=== PATIENT | male | born 1950 | race Caucasian/White ===

== ENCOUNTER 2016-07-22 16:10 | Emergency (ER) | payer OTHER ==
--- NOTE | 2016-07-22 16:18 | ER Document Report ---
ED Medical Screen (RME) - General Stated Complaint: POSSIBLE RIGHT HAND LACERATION Notes: 65 yo male presents with laceration to right hand. grabbed kitchen knife while doing dishes. Tetnus status unknown. 3cm linear laceration to palmar right hand. bleeding controlled. - Related Data Allergies/Adverse Reactions: No Known Allergies Allergy (Verified 07/22/16 16:16) Past Medical History - Past Medical History Cardiac Medical History: Reports: Hx Atrial Fibrillation, Hx Hypercholesterolemia, Hx Hypertension Denies: Hx Congestive Heart Failure, Hx Coronary Artery Disease, Hx Heart Attack, Hx Peripheral Vascular Disease, Hx Pulmonary Embolism, Hx Heart Murmur Pulmonary Medical History: Reports: Hx Sleep Apnea Denies: Hx Asthma, Hx Bronchitis, Hx COPD, Hx Pneumonia, Hx Respiratory Failure, Hx Tuberculosis Neurological Medical History: Denies: Hx Cerebrovascular Accident, Hx Seizures Endocrine Medical History: Denies: Hx Graves' Disease, Hx Hyperthyroidism, Hx Hypothyroidism Renal/ Medical History: Denies: Hx Benign Prostatic Hyperplasia, Hx End Stage Renal Disease, Hx Kidney Stones, Hx Peritoneal Dialysis Malignancy Medical History: Denies Hx Leukemia, Denies Hx Lung Cancer GI Medical History: Denies: Hx Crohn's Disease, Hx Gastroesophageal Reflux Disease, Hx Hiatal Hernia, Hx Irritable Bowel, Hx Liver Failure, Hx Ulcer Musculoskeltal Medical History: Reports Hx Arthritis - in foot and left knee., Denies Hx Fibromyalgia, Denies Hx Multiple Sclerosis, Denies Hx Muscular Dystrophy Psychiatric Medical History: Reports: Hx Depression Denies: Hx Bipolar Disorder, Hx Dementia, Hx Post Traumatic Stress Disorder, Hx Schizophrenia Traumatic Medical History: Denies: Hx Fractures Infectious Medical History: Denies: Hx HIV Past Surgical History: Reports: Hx Orthopedic Surgery - left foot. Denies: Hx Appendectomy, Hx Bowel Surgery, Hx Cholecystectomy, Hx Colostomy, Hx Coronary Artery Bypass Graft, Hx Gastric Bypass Surgery, Hx Herniorrhaphy, Hx Pacemaker, Hx Tonsillectomy - Immunizations Immunizations up to date: Yes Hx Diphtheria, Pertussis, Tetanus Vaccination: Yes
[2016-07-22] MEDS ORDERED: LIDOCAINE 1% INJ-PF (10 MG/ML) 30 ML SDV INJ ONE (21:21)
[2016-07-22] MEDS ORDERED: DIPH/PERTUSS(ACELL)/TETANUS VAC/PF 0.5 ML SYR (>=10YO) IM ONE (21:21)
--- NOTE | 2016-07-22 21:22 | ER Document Report ---
ED Wound - General Chief Complaint: Laceration Stated Complaint: POSSIBLE RIGHT HAND LACERATION Mode of Arrival: Ambulatory Information source: Patient Notes: Patient is a 65-year-old male on Coumadin who presents to the ER today for a cut to his right hand while washing dishes accidentally on a ceramic knife. He does not know when his last tetanus was. He states bleeding is controlled. He denies any numbness, tingling. TRAVEL OUTSIDE OF THE [place] IN LAST 30 DAYS: No - Related Data Allergies/Adverse Reactions: No Known Allergies Allergy (Verified 07/22/16 16:16) Past Medical History - General Information source: Patient - Social History Smoking Status: Never Smoker Chew tobacco use (# tins/day): No Frequency of alcohol use: None Drug Abuse: None Family History: CAD - Mother had bypass surgery at age 75 and lived to be 85, Hypertension Patient has suicidal ideation: No Patient has homicidal ideation: No - Past Medical History Cardiac Medical History: Reports: Hx Atrial Fibrillation, Hx Hypercholesterolemia, Hx Hypertension Denies: Hx Congestive Heart Failure, Hx Coronary Artery Disease, Hx Heart Attack, Hx Peripheral Vascular Disease, Hx Pulmonary Embolism, Hx Heart Murmur Pulmonary Medical History: Reports: Hx Sleep Apnea Denies: Hx Asthma, Hx Bronchitis, Hx COPD, Hx Pneumonia, Hx Respiratory Failure, Hx Tuberculosis Neurological Medical History: Denies: Hx Cerebrovascular Accident, Hx Seizures Endocrine Medical History: Denies: Hx Graves' Disease, Hx Hyperthyroidism, Hx Hypothyroidism Renal/ Medical History: Denies: Hx Benign Prostatic Hyperplasia, Hx End Stage Renal Disease, Hx Kidney Stones, Hx Peritoneal Dialysis Malignancy Medical History: Denies Hx Leukemia, Denies Hx Lung Cancer GI Medical History: Denies: Hx Crohn's Disease, Hx Gastroesophageal Reflux Disease, Hx Hiatal Hernia, Hx Irritable Bowel, Hx Liver Failure, Hx Ulcer Musculoskeltal Medical History: Reports Hx Arthritis - in foot and left knee., Denies Hx Fibromyalgia, Denies Hx Multiple Sclerosis, Denies Hx Muscular Dystrophy Psychiatric Medical History: Reports: Hx Depression Denies: Hx Bipolar Disorder, Hx Dementia, Hx Post Traumatic Stress Disorder, Hx Schizophrenia Traumatic Medical History: Denies: Hx Fractures Infectious Medical History: Denies: Hx HIV Past Surgical History: Reports: Hx Orthopedic Surgery - left foot. Denies: Hx Appendectomy, Hx Bowel Surgery, Hx Cholecystectomy, Hx Colostomy, Hx Coronary Artery Bypass Graft, Hx Gastric Bypass Surgery, Hx Herniorrhaphy, Hx Pacemaker, Hx Tonsillectomy - Immunizations Immunizations up to date: Yes Hx Diphtheria, Pertussis, Tetanus Vaccination: Yes Hx Pneumococcal Vaccination: 08/29/11 Review of Systems - Review of Systems Constitutional: No symptoms reported EENT: No symptoms reported Cardiovascular: No symptoms reported Respiratory: No symptoms reported Gastrointestinal: No symptoms reported Genitourinary: No symptoms reported Male Genitourinary: No symptoms reported Musculoskeletal: No symptoms reported Skin: See HPI Hematologic/Lymphatic: No symptoms reported Neurological/Psychological: No symptoms reported Physical Exam - Notes Notes: PHYSICAL EXAMINATION: GENERAL: Well-appearing and in no acute distress. HEAD: Atraumatic, normocephalic. EYES: Pupils equal round and reactive to light, extraocular movements intact, sclera anicteric, conjunctiva are normal. NECK: Normal range of motion, supple without lymphadenopathy LUNGS: CTAB and equal. No wheezes rales or rhonchi. HEART: Regular rate and rhythm without murmurs EXTREMITIES: Normal range of motion, no pitting edema. No cyanosis. NEUROLOGICAL: Cranial nerves grossly intact. Normal sensory/motor exams. PSYCH: Normal mood, normal affect. SKIN: Warm, Dry, normal turgor, 4cm laceration to volar surface of right hand, minimal bleeding, superficial Course - Re-evaluation Re-evalutation: 07/22/16 23:21 Sutures were placed and hemostasis was achieved. Patient tolerated procedure well. Discharge - Discharge Clinical Impression: Need for tetanus booster Laceration of hand Qualifiers: Encounter type: initial encounter Laterality: right Qualified Code(s): S61.411A - Laceration without foreign body of right hand, initial encounter Condition: Stable Disposition: HOME, SELF-CARE Instructions: Laceration Care ([facility]), Tetanus Immunization Given ([facility]), Prophylactic Antibiotic ([facility]), Soap Cleansing ([facility]) Additional Instructions: Please be seen in 7 days to have sutures removed. Return immediately for any new or worsening symptoms. Follow up with primary care provider, call tomorrow to make followup appointment. Prescriptions: Cephalexin Monohydrate [Keflex 250 mg Capsule] 250 mg PO BID #10 capsule
[2016-07-23 00:14] VITALS: BP 132/59
== END 2016-07-22 23:45 | disposition home or self-care (01) ==
LOC: ER 16:10
PROC: 0HQFXZZ Repair Right Hand Skin, External Approach (ICD-10-PCS; principal; 2016-07-22)
DX: S61.411A Laceration without foreign body of right hand, initial encounter (principal); W26.0XXA Contact with knife, initial encounter; Y93.G1 Activity, food preparation and clean up; Z23 Encounter for immunization; I10 Essential (primary) hypertension
CPT/HCPCS: 12002; 99282; 90471; 90715; J3490

== ENCOUNTER 2019-05-31 10:32 | Day surgery (SDC) | payer OTHER ==
[~2019-05-31 10:32] MED LIST: CHONDR SU A NA/HYALUR INTRAOC KIT (SURGICARE) ONE; EPINEPHRINE INJ/PF 1 MG/1 ML AMPULE ONE; KETOROLAC TROMETHAMINE 0.45% 4 DROP/0.4 ML DROPERETTE OD PRN; LIDOCAINE 1% INJ-PF (10 MG/ML) 30 ML SDV ONE
[2019-05-31] MEDS: CYCLOPENTOLATE 0.2%/PHENYLEPHRINE 1% OPH SOLN 2 ML OD PRN ×3 (10:50→11:10)
[2019-05-31] MEDS: BESIFLOXACIN HCL 0.6% OPH SUSP 5 ML BOTTLE OD PRN ×4 (10:50→11:44)
[2019-05-31] MEDS: TROPICAMIDE 1% OPH SOLN 15 ML OD PRN ×3 (10:50→11:10)
[2019-05-31] MEDS: TETRACAINE HCL 0.5% OPH SOLN 4 ML OD PRN ×3 (10:50→11:26)
[2019-05-31] MEDS ORDERED: FENTANYL CITRATE INJ/PF 100 MCG/2 ML AMPUL ONE (11:13)
[2019-05-31] MEDS ORDERED: MIDAZOLAM 2 MG/2 ML INJ ONE (11:13)
[2019-05-31] MEDS: TOBRAMYCIN SULFATE/DEXAMETH OPH OINTMENT 3.5 GM ONE ×2 (11:44)
[2019-05-31] MEDS: DORZOLAMIDE HCL 2%/TIMOLOL MALEAT 0.5% OPH SOLN 10 ML OD PRN ×2 (11:44)
== END 2019-05-31 12:32 | disposition home or self-care (01) ==
LOC: SC 10:32
PROVIDERS: ATTEND Ophthalmology
DX: H25.11 Age-related nuclear cataract, right eye (principal); J44.9 Chronic obstructive pulmonary disease, unspecified; E78.00 Pure hypercholesterolemia, unspecified; I10 Essential (primary) hypertension; I48.91 Unspecified atrial fibrillation; M10.9 Gout, unspecified; I20.9 Angina pectoris, unspecified; D64.9 Anemia, unspecified; Z79.51 Long term (current) use of inhaled steroids; Z79.899 Other long term (current) drug therapy; Z79.01 Long term (current) use of anticoagulants; Z87.891 Personal history of nicotine dependence
CPT/HCPCS: 00142; 66984; V2632; J2250; J3490 ×4; J0171; J3010; 142

== ENCOUNTER 2019-06-14 06:45 | Day surgery (SDC) | payer OTHER ==
[~2019-06-14 06:45] MED LIST changes: -CHONDR SU A NA/HYALUR INTRAOC KIT (SURGICARE) ONE; -EPINEPHRINE INJ/PF 1 MG/1 ML AMPULE ONE; -KETOROLAC TROMETHAMINE 0.45% 4 DROP/0.4 ML DROPERETTE OD PRN; +KETOROLAC TROMETHAMINE 0.45% 4 DROP/0.4 ML DROPERETTE OS PRN; -LIDOCAINE 1% INJ-PF (10 MG/ML) 30 ML SDV ONE
[2019-06-14] MEDS ORDERED: MIDAZOLAM 2 MG/2 ML INJ ONE (06:56)
[2019-06-14] MEDS ORDERED: FENTANYL CITRATE INJ/PF 100 MCG/2 ML AMPUL ONE (06:56)
[2019-06-14] MEDS: TETRACAINE HCL 0.5% OPH SOLN 4 ML OS PRN ×4 (06:57→07:47)
[2019-06-14] MEDS: BESIFLOXACIN HCL 0.6% OPH SUSP 5 ML BOTTLE OS PRN ×4 (06:58→08:08)
[2019-06-14] MEDS: TROPICAMIDE 1% OPH SOLN 15 ML OS PRN ×3 (06:58→07:25)
[2019-06-14] MEDS: CYCLOPENTOLATE 0.2%/PHENYLEPHRINE 1% OPH SOLN 2 ML OS PRN ×3 (06:58→07:25)
[2019-06-14] MEDS: CHONDR SU A NA/HYALUR INTRAOC KIT (SURGICARE) ONE ×2 (07:57)
[2019-06-14] MEDS: EPINEPHRINE INJ/PF 1 MG/1 ML AMPULE ONE ×2 (07:57)
[2019-06-14] MEDS: LIDOCAINE 1%/PHENYLEPHRINE 1.5% 1 ML VIAL ONE ×2 (07:57)
[2019-06-14] MEDS: DORZOLAMIDE HCL 2%/TIMOLOL MALEAT 0.5% OPH SOLN 10 ML OS PRN ×2 (08:08)
== END 2019-06-14 08:41 | disposition home or self-care (01) ==
LOC: SC 06:45
PROVIDERS: ATTEND Ophthalmology
DX: H25.12 Age-related nuclear cataract, left eye (principal); Z98.41 Cataract extraction status, right eye; J44.9 Chronic obstructive pulmonary disease, unspecified; I10 Essential (primary) hypertension; E78.00 Pure hypercholesterolemia, unspecified; I48.91 Unspecified atrial fibrillation; D64.9 Anemia, unspecified; E66.9 Obesity, unspecified; Z79.51 Long term (current) use of inhaled steroids; Z79.899 Other long term (current) drug therapy; Z79.01 Long term (current) use of anticoagulants; Z87.891 Personal history of nicotine dependence
CPT/HCPCS: 66984; 00142; V2632; J2250; J3490 ×2; J0171; J3010; J2370; 142

== ENCOUNTER 2020-01-18 19:04 | Observation (INO) | payer OTHER ==
[2020-01-18] MEDS ORDERED: ASPIRIN 81 MG TABLET, CHEWABLE PO ONE (19:34)
--- NOTE | 2020-01-18 19:37 | ER Document Report ---
ED Medical Screen (RME) - General Chief Complaint: Chest Pain Stated Complaint: SHARP CHEST PAIN Time Seen by Provider: 01/18/20 19:31 Primary Care Provider: MOHIT SEGOVIA MD [Primary Care Provider] - Follow up as needed Mode of Arrival: Ambulatory Information source: Patient Notes: 69-year-old male presented to ED for complaint of sharp pain to the left chest since 5 PM. He states he started having chest pain on Wednesday and went tomedical and they told told him that he had a cyst and that could be causing the chest pain. He states he has been having the chest pain that comes and goes since then. He has had chest pain in the past. He also has had atrial for when the past. He is a former smoker former alcohol but no drugs. He is alert oriented respirations regular nonlabored speaking in full sentences. Lungs are clear apical pulse is very irregular. I have greeted and performed a rapid initial assessment of this patient. A comprehensive ED assessment and evaluation of the patient, analysis of test results and completion of medical decision making process will be conducted by an additional ED providers. TRAVEL OUTSIDE OF THE [place] IN LAST 30 DAYS: No - Related Data Allergies/Adverse Reactions: No Known Allergies Allergy (Verified 05/23/19 14:50) Past Medical History - Past Medical History Cardiac Medical History: Reports: Hx Atrial Fibrillation, Hx Hypercholesterolemia, Hx Hypertension Denies: Hx Congestive Heart Failure, Hx Coronary Artery Disease, Hx Heart Attack, Hx Peripheral Vascular Disease, Hx Pulmonary Embolism, Hx Heart Murmur Pulmonary Medical History: Reports: Hx Sleep Apnea Denies: Hx Asthma, Hx Bronchitis, Hx COPD, Hx Pneumonia, Hx Respiratory Failure, Hx Tuberculosis Neurological Medical History: Denies: Hx Cerebrovascular Accident, Hx Seizures, Hx Parkinson's Disease Endocrine Medical History: Denies: Hx Graves' Disease, Hx Hyperthyroidism, Hx Hypothyroidism Renal/ Medical History: Denies: Hx Benign Prostatic Hyperplasia, Hx End Stage Renal Disease, Hx Kidney Stones, Hx Peritoneal Dialysis Malignancy Medical History: Denies Hx Leukemia, Denies Hx Lung Cancer GI Medical History: Reports: Hx Hepatitis - HEP B AND C RESOLVED . Denies: Hx Crohn's Disease, Hx Gastroesophageal Reflux Disease, Hx Hiatal Hernia - UMBILICAL HERNIA, Hx Irritable Bowel, Hx Liver Failure, Hx Pancreatitis, Hx Ulcer Musculoskeltal Medical History: Reports Hx Arthritis - in foot and left knee., Denies Hx Fibromyalgia, Denies Hx Multiple Sclerosis, Denies Hx Muscular Dystrophy, Denies Hx Systemic Lupus Erythematosus Psychiatric Medical History: Reports: Hx Depression Denies: Hx Bipolar Disorder, Hx Dementia, Hx Post Traumatic Stress Disorder, Hx Schizophrenia Traumatic Medical History: Denies: Hx Fractures Infectious Medical History: Reports: Hx Hepatitis - HEP B AND C RESOLVED . Denies: Hx HIV Past Surgical History: Reports: Hx Orthopedic Surgery - left foot. Denies: Hx Appendectomy, Hx Bowel Surgery, Hx Cholecystectomy, Hx Colostomy, Hx Coronary Artery Bypass Graft, Hx Gastric Bypass Surgery, Hx Herniorrhaphy, Hx Open Heart Surgery, Hx Pacemaker, Hx Tonsillectomy - Immunizations Immunizations up to date: Yes Hx Diphtheria, Pertussis, Tetanus Vaccination: Yes Physical Exam - Vital signs Vitals: Temp Pulse Resp BP Pulse Ox 98.9 F 121 H 18 179/91 H 97 01/18/20 19:15 01/18/20 19:15 01/18/20 19:15 01/18/20 19:15 01/18/20 19:15 Course - Vital Signs Vital signs: Temp Pulse Resp BP Pulse Ox 98.9 F 121 H 18 179/91 H 97 01/18/20 19:15 01/18/20 19:15 01/18/20 19:15 01/18/20 19:15 01/18/20 19:15 Doctor's Discharge - Discharge Referrals: MOHIT SEGOVIA MD [Primary Care Provider] - Follow up as needed
[2020-01-18] MEDS ORDERED: NORMAL SALINE 1000 ML 1,000 ML IV ONE (20:11)
--- NOTE | 2020-01-18 20:15 | ER Document Report ---
ED Cardiac - General Chief Complaint: Chest Pain Stated Complaint: SHARP CHEST PAIN Time Seen by Provider: 01/18/20 19:31 Mode of Arrival: Ambulatory Notes: Patient is a 69-year-old male who comes emergency department for chief complaint of discomfort sensation which is occasionally sharp located in the left side of his chest. He states he started noticing this at about 5 PM today although he has had this intermittently over the past several days. Patient denies any other symptoms including shortness of breath, dizziness, nausea, vomiting, fever, cough, passing out. He has a history of atrial fibrillation on m etoprolol and on Coumadin, he states he has been compliant with his medications. He also has a history of obesity and COPD (former smoker, not on home oxygen). He denies history of CHF, HI, or stenting. His last stress test was 7 years ago. 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 Velasquez at [facility]. TRAVEL OUTSIDE OF THE [place] IN LAST 30 DAYS: No - Related Data Allergies/Adverse Reactions: No Known Allergies Allergy (Verified 05/23/19 14:50) Home Medications: warfarin, albuterol inh, ferrous sulfate, fish oil, robaxin, metoprolol, procardia, pantaoprazole, pravastatin, Past Medical History - General Information source: Patient - Social History Smoking Status: Former Smoker Frequency of alcohol use: former Lives with: Family Family History: CAD - Mother had bypass surgery at age 75 and lived to be 85, Hypertension Patient has homicidal ideation: No - Past Medical History Cardiac Medical History: Reports: Hx Atrial Fibrillation, Hx Hypercholesterolemia, Hx Hypertension Denies: Hx Congestive Heart Failure, Hx Coronary Artery Disease, Hx Heart Attack, Hx Peripheral Vascular Disease, Hx Pulmonary Embolism, Hx Heart Murmur Pulmonary Medical History: Reports: Hx COPD, Hx Sleep Apnea Denies: Hx Asthma, Hx Bronchitis, Hx Pneumonia, Hx Respiratory Failure, Hx Tuberculosis Neurological Medical History: Denies: Hx Cerebrovascular Accident, Hx Seizures, Hx Parkinson's Disease Endocrine Medical History: Denies: Hx Graves' Disease, Hx Hyperthyroidism, Hx Hypothyroidism Renal/ Medical History: Denies: Hx Benign Prostatic Hyperplasia, Hx End Stage Renal Disease, Hx Kidney Stones, Hx Peritoneal Dialysis Malignancy Medical History: Denies Hx Leukemia, Denies Hx Lung Cancer GI Medical History: Reports: Hx Hepatitis - HEP B AND C RESOLVED . Denies: Hx Crohn's Disease, Hx Gastroesophageal Reflux Disease, Hx Hiatal Hernia - UMBILICAL HERNIA, Hx Irritable Bowel, Hx Liver Failure, Hx Pancreatitis, Hx Ulcer Musculoskeletal Medical History: Reports Hx Arthritis - in foot and left knee., Denies Hx Fibromyalgia, Denies Hx Multiple Sclerosis, Denies Hx Muscular Dystrophy, Denies Hx Systemic Lupus Erythematosus Psychiatric Medical History: Reports: Hx Depression Denies: Hx Bipolar Disorder, Hx Dementia, Hx Post Traumatic Stress Disorder, Hx Schizophrenia Traumatic Medical History: Denies: Hx Fractures Infectious Medical History: Reports: Hx Hepatitis - HEP B AND C RESOLVED . Denies: Hx HIV Past Surgical History: Reports: Hx Orthopedic Surgery - left foot. Denies: Hx Appendectomy, Hx Bowel Surgery, Hx Cholecystectomy, Hx Colostomy, Hx Coronary Artery Bypass Graft, Hx Gastric Bypass Surgery, Hx Herniorrhaphy, Hx Open Heart Surgery, Hx Pacemaker, Hx Tonsillectomy - Immunizations Immunizations up to date: Yes Hx Diphtheria, Pertussis, Tetanus Vaccination: Yes Hx Pneumococcal Vaccination: 08/29/11 Review of Systems - Review of Systems Constitutional: No symptoms reported EENT: No symptoms reported Cardiovascular: See HPI Respiratory: No symptoms reported Gastrointestinal: No symptoms reported Genitourinary: No symptoms reported Male Genitourinary: No symptoms reported Musculoskeletal: No symptoms reported Skin: No symptoms reported Hematologic/Lymphatic: No symptoms reported Neurological/Psychological: No symptoms reported Physical Exam - Vital signs Vitals: Temp Pulse Resp BP Pulse Ox 98.9 F 121 H 18 179/91 H 97 01/18/20 19:15 01/18/20 19:15 01/18/20 19:15 01/18/20 19:15 01/18/20 19:15 - Notes Notes: GENERAL: Alert, interacts well. No acute distress. HEAD: Normocephalic, atraumatic. EYES: Pupils equal, round, and reactive to light. Extraocular movements intact. ENT: Oral mucosa dry, tongue midline. Oropharynx unremarkable. Airway patent. NECK: Full range of motion. Supple. Trachea midline. No lymphadenopathy. LUNGS: Slightly decreased bilaterally, no wheezes, rales, rhonchi, tachypnea, or respiratory distress. HEART: Tachycardia, irregularly irregular, no murmur ABDOMEN: Soft, non-tender. Non-distended. Questionable nontender umbilical hernia. EXTREMITIES: Moves all 4 extremities spontaneously. No edema, normal radial and dorsalis pedis pulses bilaterally. No cyanosis. BACK: no cervical, thoracic, lumbar midline tenderness. No saddle anesthesia, normal distal neurovascular exam. Moves all extremities in full range of motion. NEUROLOGICAL: Alert and oriented x3. Normal speech. Cranial nerves II through XII grossly intact. Strength 5/5 in all extremities. PSYCH: Speaks slightly anxiously but otherwise unremarkable SKIN: Warm, dry, normal turgor. No rashes or lesions noted. Course - Re-evaluation Re-evalutation: Patient initially noted to be in A. fib with RVR with chest discomfort on the left side. He was given 500 cc bolus of IV fluids, he was given 10 mg IV Cardizem after he had no response to this, after this his heart rate did come down into the 80s to 100s, his symptoms did improve. Chest x-ray unremarkable, EKG showing A. fib with RVR, troponin is not elevated, CBC and chemistry nonspecific, TSH is not abnormal. BNP is elevated at 1100, no comparison. Patient is sufficiently anticoagulated based on his INR. On monitoring patient did start having A. fib with RVR in the 120s again, patient is starting to get discomfort again. I discussed with Dr. Jerry, he recommends repeat Cardizem, placed on drip, admission to the hospital. Patient is very agreeable with this. Discussed with Dr. Grewal, hospitalist, patient accepted to [facility] observation. - Vital Signs Vital signs: Temp Pulse Resp BP Pulse Ox 97.5 F 93 20 161/96 H 97 01/19/20 04:05 01/19/20 04:13 01/19/20 04:05 01/19/20 04:05 01/19/20 04:05 - Laboratory Result Diagrams: 01/18/20 20:17 01/18/20 20:17 Laboratory results interpreted by me: 01/18/20 01/18/20 01/18/20 20:17 20:17 20:17 PT 26.0 H Glucose 112 H NT-Pro-B Natriuret Pep 1100 H Urine Protein Urine Blood 01/18/20 20:17 PT Glucose NT-Pro-B Natriuret Pep Urine Protein 30 H Urine Blood MODERATE H - EKG Interpretation by Me Additional EKG results interpreted by me: EKG shows atrial fibrillation with RVR at a rate of 126, borderline left axis deviation, QTC is borderline prolonged at 493, no T wave inversions or ST segment changes in consecutive leads. Discharge - Discharge Clinical Impression: Atrial fibrillation with rapid ventricular response Chest pain Qualifiers: Chest pain type: unspecified Qualified Code(s): R07.9 - Chest pain, unspecified Condition: Stable Disposition: ADMITTED OBSERVATION Admitting Provider: Carmina (Hospitalist) Unit Admitted: [facility]
--- NOTE | 2020-01-18 20:33 | RADIOLOGY REPORT (SQ) ---
XR CHEST 2 VIEWS HISTORY: Chest pain. COMPARISON: 05/16/2013 FINDINGS: The heart size is within normal limits. There is no pulmonary vascular congestion. No consolidation, pleural effusion, or pneumothorax is seen. The bony structures are preserved. IMPRESSION: No evidence of acute cardiopulmonary disease.
[2020-01-18 20:38] LABS: ABSOLUTE EOSINOPHILS # (AUTO) 0.2 10^3/uL (0.0-0.6); ABSOLUTE LYMPHOCYTES (AUTO) 1.8 10^3/uL (0.5-4.7); ABSOLUTE MONOCYTES (AUTO) 0.5 10^3/uL (0.1-1.4); ABSOLUTE NEUT (AUTO) 6.3 10^3/uL (1.7-8.2); BASOPHILS % (AUTO) 0.5 % (0-2); EOSINOPHILS % (AUTO) 1.9 % (0-6); HEMATOCRIT 43.9 % (37.9-51.0); HEMOGLOBIN 15.8 g/dL (13.5-17.0); LYMPHOCYTES % (AUTO) 20.3 % (13-45); MEAN CORPUSCULAR HEMOGLOBIN 31.9 pg (27.0-33.4); MEAN CORPUSCULAR HGB CONC 35.9 g/dL (32.0-36.0); MEAN CORPUSCULAR VOLUME 89 fl (80-97); PLATELET COUNT 251 10^3/uL (150-450); RED BLOOD COUNT 4.94 10^6/uL (4.35-5.55); RED CELL DISTRIBUTION WIDTH 13.7 % (11.5-14.0); SEGMENTED NEUTROPHILS % (AUTO) 71.3 % (42-78); TOTAL CELLS COUNTED % (AUTO) 100 %; WHITE BLOOD COUNT 8.9 10^3/uL (4.0-10.5)
[2020-01-18 20:51] LABS: APPEARANCE,URINE SLIGHTLY-CLOUDY; BILIRUBIN,URINE NEGATIVE (NEGATIVE); COLOR,URINE YELLOW; GLUCOSE, URINE NEGATIVE (NEGATIVE); KETONES,URINE NEGATIVE (NEGATIVE); LEUKOCYTE ESTERASE,URINE NEGATIVE (NEGATIVE); NITRITE,URINE NEGATIVE (NEGATIVE); PROTEIN,URINE 30 mg/dL (NEGATIVE); URINE SPECIFIC GRAVITY 1.018; UROBILINOGEN,URINE NEGATIVE mg/dL (<2.0)
[2020-01-18 20:54] LABS: ALBUMIN 4.6 g/dL (3.5-5.0); ALKALINE PHOSPHATASE 83 U/L (38-126); ANION GAP 8 (5-19); ASPARTATE AMINO TRANSFERASE 29 U/L (17-59); BILIRUBIN,DIRECT 0.1 mg/dL (0.0-0.4); BLOOD UREA NITROGEN 15 mg/dL (7-20); CALCIUM 8.9 mg/dL (8.4-10.2); CARBON DIOXIDE 25 mmol/L (22-30); CHLORIDE 105 mmol/L (98-107); CREATINE KINASE 160 U/L (55-170); GLUCOSE 112 mg/dL (75-110); POTASSIUM 3.8 mmol/L (3.6-5.0); TOTAL PROTEIN 7.8 g/dL (6.3-8.2)
[2020-01-18 20:55] LABS: INTERNATIONAL RATION (INR) 2.33
[2020-01-18 21:08] LABS: NT PRO BNP 1100 pg/mL (<125)
[2020-01-18 21:10] LABS: TROPONIN I < 0.012 ng/mL
[2020-01-18] MEDS ORDERED: DILTIAZEM HCL INJ 25 MG/5 ML VIAL IV ONE ×2 (21:13→23:13)
[2020-01-18] MEDS ORDERED: DILTIAZEM HCL/D5W 125 MG/125 ML RTUINJ IV PRN (23:13)
--- NOTE | 2020-01-18 23:30 | ER Document Report ---
Doctor's Note Notes: 01/18/20 23:25 I was asked to see this gentleman along with midlevel provider. I have reviewed his history and results of his labs and EKG and have examined patient at bedside. This is a 69-year-old male with a longstanding history of chronic atrial fibrillation who is on 100 mg of metoprolol orally twice daily and also is taking warfarin. He says he has been exercising more than usual within the last several days and comes in now because of increased pulse rate and some vague nonradiating chest discomfort. Patient is hypertensive here around 170/100. He is in uncontrolled atrial fibrillation with a rate of approximately 130. Clinically he appears well- hydrated his chest is clear his cardiac rhythm is irregularly irregular. He has 1+ pretibial edema bilaterally. He is oxygenating normally on room air. Patient received IV Cardizem and his rate has been reduced with this. He is currently about 105/min. Blood pressure remains elevated. His BNP is 1100. His initial troponin is normal. His INR is 2.33. I recommended that we put this patient on a Cardizem drip to keep his rate controlled and admit for serial EKGs and cardiac enzymes. It is unclear to me why he is rate has jumped up. He insists that he is fully compliant with medications. Further recommend that he have thyroid checked with a TSH level. 01/18/20 23:28
[2020-01-19] MEDS ORDERED: DILTIAZEM HCL/D5W 125 MG/125 ML RTUINJ IV PRN (00:18)
[2020-01-19] MEDS ORDERED: LORAZEPAM INJ 2 MG/1 ML VIAL IV PRN (00:19)
[2020-01-19] MEDS ORDERED: MELATONIN 5 MG TABLET PO PRN (00:19)
[2020-01-19] MEDS ORDERED: GUAIFENESIN SYRP 200 MG/10 ML UDC PO PRN (00:19)
[2020-01-19] MEDS ORDERED: MAGNESIUM HYDROXIDE SUSP 30 ML UDCUP PO PRN (00:19)
[2020-01-19] MEDS ORDERED: NITROGLYCERIN 0.4 MG/TAB 25 TAB/BOTTLE SL PRN (00:19)
[2020-01-19] MEDS ORDERED: MORPHINE SULFATE 10 MG/ML INJ IV PRN (00:19)
[2020-01-19] MEDS ORDERED: MAG HYDROX/AL HYDROX/SIMETH SUSP 30 ML UDCUP PO PRN (00:19)
[2020-01-19] MEDS ORDERED: ACETAMINOPHEN 325 MG TABLET PO PRN (00:19)
[2020-01-19] MEDS ORDERED: ONDANSETRON HCL INJ/PF 4 MG/2 ML SDV IV PRN (00:20)
--- NOTE | 2020-01-19 01:08 | EKG REPORT ---
SEVERITY:- ABNORMAL ECG - ATRIAL FIBRILLATION LEFT AXIS DEVIATION BORDERLINE PROLONGED QT INTERVAL : Confirmed by: Freida Crowder 19-Jan-2020 01:07:15
--- NOTE | 2020-01-19 04:49 | PDOC H&P ---
History of Present Illness Admission Date/PCP: 01/18/2020 23:48 [facility] Patient complains of: Chest pain History of Present Illness: ISMAEL HICKS is a 69 year old male who presented the emergency room with acute chest pain. He admits the sudden onset severe, nonradiating, left lateral lower chest sharp stabbing pain. The pain developed at approximately 1700 and was intermittently present for a few minutes then resolved spontaneously. He denies any associated or accompanying signs and symptoms. He admits numerous similar episodes occurring intermittently over the past week and he admits other similar episodes in the remote past. He has not identified any aggravating or ameli orating factors for his chest pain. In the emergency room he was found to have atrial fibrillation with a rapid ventricular response, a BNP of 1100 and normal cardiac enzyme levels. He required a diltiazem infusion in order to adequately control his heart rate and is therefore being admitted to the hospital for further evaluation and treatment. Past Medical History Cardiac Medical History: Reports: Atrial Fibrillation, Hyperlipidema, Hypertension Denies: Congestive Heart Failure, Coronary Artery Disease, Myocardial Infarction, Peripheral Vascular Disease, Pulmonary Embolism, Heart Murmur Pulmonary Medical History: Reports: Chronic Obstructive Pulmonary Disease (COPD), Sleep Apnea Denies: Asthma, Bronchitis, Pneumonia, Respiratory Failure, Tuberculosis EENT Medical History: Denies: Cataracts, Ears - Hearing aids Neurological Medical History: Denies: Hemorrhagic CVA, Ischemic CVA, Seizures Endocrine Medical History: Reports: Obesity Denies: Diabetes Mellitus Type 1, Diabetes Mellitus Type 2, Hyperthyroidism, Hypothyroidism Renal/ Medical History: Denies: Chronic Kidney Disease, Nephrolithiasis Malignancy Medical History: Reports: None GI Medical History: Reports: Hepatitis - HEP B AND C RESOLVED , Other - Umbilical hernia Denies: Cirrhosis, Crohn's Disease, Gastroesophageal Reflux Disease, Hiatal Hernia, Peptic Ulcer Disease, Ulcerative Colitis Musculoskeltal Medical History: Reports: Arthritis - in foot and left knee., Gout - in foot and left knee. Denies: Fibromyalgia Skin Medical History: Denies: Eczema, Psoriasis Psychiatric Medical History: Reports: Depression, Tobacco Dependency Denies: Alcohol Dependency, Bipolar Disorder, Dementia, Post Traumatic Stress Disorder, Substance Abuse Traumatic Medical History: Reports: None Hematology: Reports: Anemia - GI BLEED 2017, Bleeding Tendencies - Easy bleeding and bruising on "blood thinners" Infectious Medical History: Reports: Hepatitis B, Hepatitis C Past Surgical History Past Surgical History: Reports: Orthopedic Surgery - left foot Social History Information Source: Patient Lives with: Spouse/Significant other Smoking Status: Former Smoker Electronic Cigarette use?: No Frequency of Alcohol Use: None Hx Recreational Drug Use: No Drugs: None Hx Prescription Drug Abuse: No - Advance Directive Resuscitation Status: Full Code Surrogate healthcare decision maker:: Hectorandre Hicks Family History Family History: CAD - Mother, father and brother, Hypertension Parental Family History Reviewed: Yes Children Family History Reviewed: No Sibling(s) Family History Reviewed.: Yes Medication/Allergy Home Medications: Pravastatin Sodium 20 mg PO QHS 04/24/12 [place]-3 Fatty Acids [Fish Oil] 4,000 mg PO BID 03/03/13 Sildenafil Citrate [Viagra] 100 mg PO ASDIR PRN 03/03/13 Albuterol Sulfate [Albuterol Sulfate Hfa] 2 puff IH Q6HP PRN 05/23/19 Allopurinol [Zyloprim 100 mg Tablet] 100 mg PO DAILY 05/23/19 Lisinopril [Prinivil 40 mg Tablet] 20 mg PO ASDIR PRN 05/23/19 Methocarbamol [Robaxin 500 mg Tablet] 500 mg PO BID PRN 05/23/19 Nifedipine [Nifedipine ER] 30 mg PO DAILY 05/23/19 Pantoprazole Sodium 40 mg PO DAILY 05/23/19 Warfarin Sodium 2.5 mg PO MOWEFR 05/23/19 Warfarin Sodium 5 mg PO SUTUTHSA 05/23/19 Carboxymethylcellulose Sodium [Lubricating Plus] 1 each OP QID 01/19/20 Metoprolol Succinate [Toprol Xl 50 mg Tab.sr] 100 mg PO Q12 #60 tab.sr.24h 01/19/20 Selenium Sulfide [Anti-Dandruff] 1 applic TP DAILY 01/19/20 Allergies/Adverse Reactions: No Known Allergies Allergy (Verified 05/23/19 14:50) Review of Systems Constitutional: ABSENT: chills, fever(s) Eyes: ABSENT: visual disturbances, other - Eye pain Ears: ABSENT: hearing changes, other - Ear pain Nose, Mouth, and Throat: ABSENT: headache(s), sore throat Cardiovascular: PRESENT: as per HPI, chest pain, edema - Bilateral lower extremities for the last week. ABSENT: dyspnea on exertion, orthropnea, pa lpitations Respiratory: ABSENT: cough, dyspnea Gastrointestinal: ABSENT: abdominal pain, constipation, diarrhea, nausea, vomiting Genitourinary: ABSENT: dysuria, hematuria Musculoskeletal: ABSENT: back pain, joint swelling Integumentary: ABSENT: pruritus, rash Neurological: ABSENT: confusion, convulsions, focal weakness, memory loss, syncope Psychiatric: ABSENT: anxiety, depression Endocrine: ABSENT: cold intolerance, heat intolerance Hematologic/Lymphatic: PRESENT: easy bleeding - On "blood thinners", easy bruising - On "blood thinners" Allergic/Immunologic: ABSENT: seasonal rhinorrhea Physical Exam Vital Signs: Temp Pulse Resp BP Pulse Ox 98.9 F 121 H 18 135/100 H 95 01/18/20 19:15 01/18/20 19:15 01/18/20 21:45 01/18/20 21:45 01/18/20 21:45 Intake & Output 01/16/20 01/17/20 01/18/20 23:59 23:59 23:59 Intake Total 1000 Balance 1000 Weight 146.3 kg General appearance: PRESENT: no acute distress, cooperative, morbidly obese Head exam: PRESENT: atraumatic, normocephalic Eye exam: PRESENT: conjunctiva pink. ABSENT: conjunctival injection, scleral ic terus Ear exam: PRESENT: normal external ear exam. ABSENT: bleeding, drainage Mouth exam: PRESENT: dry mucosa, neck supple Neck exam: ABSENT: thyromegaly, tracheal deviation Respiratory exam: PRESENT: clear to auscultation josie, symmetrical, unlabored Cardiovascular exam: PRESENT: irregular rhythm - Irregularly irregular rate and rhythm. ABSENT: clicks, gallop, rubs Pulses: PRESENT: normal radial pulses, normal dorsalis pedis pul Vascular exam: PRESENT: normal capillary refill. ABSENT: pallor GI/Abdominal exam: PRESENT: normal bowel sounds, soft. ABSENT: tenderness Rectal exam: PRESENT: deferred Extremities exam: PRESENT: pedal edema - Bilateral, +1 edema - Bilateral pretibial edema with pitting. ABSENT: joint swelling Musculoskeletal exam: ABSENT: deformity, dislocation Neurological exam: PRESENT: alert, oriented to person, oriented to place, oriented to time, oriented to situation, CN II-XII grossly intact. ABSENT: motor sensory deficit Psychiatric exam: PRESENT: appropriate affect, normal mood Skin exam: PRESENT: dry, intact, warm. ABSENT: jaundice, rash, urticaria Results Laboratory Results: 01/18/20 20:17 01/18/20 20:17 01/18/20 01/18/20 01/18/20 20:17 20:17 20:17 WBC 8.9 RBC 4.94 Hgb 15.8 Hct 43.9 MCV 89 MCH 31.9 MCHC 35.9 RDW 13.7 Plt Count 251 Seg Neutrophils % 71.3 Sodium 138.1 Potassium 3.8 Chloride 105 Carbon Dioxide 25 Anion Gap 8 BUN 15 Creatinine 1.21 Est GFR ( Amer) > 60 Glucose 112 H Calcium 8.9 Magnesium 2.1 Total Bilirubin 1.0 AST 29 Alkaline Phosphatase 83 Total Protein 7.8 Albumin 4.6 TSH 2.39 Urine Color Urine Appearance Urine pH Ur Specific [place] Urine Protein Urine Glucose (UA) Urine Ketones Urine Blood Urine Nitrite Ur Leukocyte Esterase Urine WBC (Auto) Urine RBC (Auto) 01/18/20 20:17 WBC RBC Hgb Hct MCV MCH MCHC RDW Plt Count Seg Neutrophils % Sodium Potassium Chloride Carbon Dioxide Anion Gap BUN Creatinine Est GFR ( Amer) Glucose Calcium Magnesium Total Bilirubin AST Alkaline Phosphatase Total Protein Albumin TSH Urine Color YELLOW Urine Appearance SLIGHTLY-CLOUDY Urine pH 5.0 Ur Specific [place] 1.018 Urine Protein 30 H Urine Glucose (UA) NEGATIVE Urine Ketones NEGATIVE Urine Blood MODERATE H Urine Nitrite NEGATIVE Ur Leukocyte Esterase NEGATIVE Urine WBC (Auto) 3 Urine RBC (Auto) 6 01/18/20 01/18/20 20:17 20:17 Creatine Kinase 160 Troponin I < 0.012 NT-Pro-B Natriuret Pep 1100 H Impressions: Chest X-Ray 01/18/20 19:35 IMPRESSION: No evidence of acute cardiopulmonary disease. Assessment and Plan - Diagnosis (1) Atrial fibrillation with rapid ventricular response Is this a current diagnosis for this admission?: Yes (2) Chest pain Qualifiers: Chest pain type: unspecified Qualified Code(s): R07.9 - Chest pain, unspecified Is this a current diagnosis for this admission?: Yes (3) Chronic atrial fibrillation Is this a current diagnosis for this admission?: Yes (4) Hyperlipidemia Qualifiers: Hyperlipidemia type: unspecified Qualified Code(s): E78.5 - Hyperlipidemia, unspecified Is this a current diagnosis for this admission?: Yes (5) Essential hypertension Is this a current diagnosis for this admission?: Yes - Plan Summary Summary: Patient is admitted to [facility], where he received routine supportive and symptomatic cares. His diltiazem infusion will be continued until can be replaced with adequate oral medication control. Serial cardiac enzymes will be performed. He will use morphine sulfate 2 to 4 mg IV every 2 hours as needed for chest pain not responding to nitroglycerin. He will use Ativan 1 mg IV every 4 hours as needed for anxiety or restlessness. His usual home medications will be continued once his medication list can be verified and has been reconciled. He will be treated with a cardiac diet. Additional laboratory and/or radiographic evaluations will be obtained as needed. - Time Time Spent with patient: 15-24 minutes Medications reviewed and adjusted accordingly: Yes Anticipated Discharge Disposition: Home, Self Care Anticipated Discharge: within 24 hours Anticipated discharge: Home - Inpatient Certification Based on my medical assessment, after consideration of the patient's comorbidities, presenting symptoms, or acuity I expect that the services needed warrant INPATIENT care.: Yes I certify that my determination is in accordance with my understanding of Medicare's requirements for reasonable and necessary INPATIENT services [42 CFR 412.3e].: Yes Medical Necessity: Need Close Monitoring Due to Risk of Patient Decompensation, Need For Continuous Telemetry Monitoring, Risk of Complication if Not Cared For in Hospital
[2020-01-19] MEDS ORDERED: METOPROLOL TARTRATE 100 MG TABLET PO ONE (04:50)
[2020-01-19] MEDS ORDERED: KETOROLAC TROMETHAMINE INJ/PF 30 MG/1 ML SDV IV ONE (04:53)
[2020-01-19] MEDS ORDERED: KETOROLAC TROMETHAMINE INJ/PF 30 MG/1 ML SDV IV PRN (04:53)
[2020-01-19 05:50] LABS: HEMATOCRIT 45.4 % (37.9-51.0); HEMOGLOBIN 15.9 g/dL (13.5-17.0); MEAN CORPUSCULAR HEMOGLOBIN 31.4 pg (27.0-33.4); MEAN CORPUSCULAR HGB CONC 34.9 g/dL (32.0-36.0); MEAN CORPUSCULAR VOLUME 90 fl (80-97); PLATELET COUNT 264 10^3/uL (150-450); RED BLOOD COUNT 5.05 10^6/uL (4.35-5.55); RED CELL DISTRIBUTION WIDTH 13.7 % (11.5-14.0); WHITE BLOOD COUNT 8.5 10^3/uL (4.0-10.5)
[2020-01-19 06:03] LABS: INTERNATIONAL RATION (INR) 2.17; PROTHROMBIN TIME 24.5 SEC (11.4-15.4)
[2020-01-19 06:04] LABS: ANION GAP 8 (5-19); BLOOD UREA NITROGEN 14 mg/dL (7-20); CALCIUM 8.8 mg/dL (8.4-10.2); CARBON DIOXIDE 26 mmol/L (22-30); CHLORIDE 105 mmol/L (98-107); CHOLESTEROL 173.04 mg/dL (0-200); CREATINE KINASE 164 U/L (55-170); GLUCOSE 100 mg/dL (75-110); TRIGLYCERIDES 222 mg/dL (<150)
[2020-01-19 06:10] LABS: VLDL CHOLESTEROL 44.4 mg/dL (10-31)
[2020-01-19 06:14] LABS: DIRECT LDL 101 mg/dL (<100)
[2020-01-19 06:18] LABS: CREATINE KINASE MB 1.79 ng/mL (<4.55)
[2020-01-19 06:19] LABS: TROPONIN I < 0.012 ng/mL
[2020-01-19] MEDS ORDERED: DOCUSATE SODIUM 100 MG CAPSULE PO SCH (10:00)
[2020-01-19] MEDS ORDERED: FAMOTIDINE 20 MG TABLET PO SCH (10:00)
[2020-01-19] MEDS ORDERED: METOPROLOL SUCCINATE 50 MG TAB.SR.24H PO SCH (10:00)
[2020-01-19 11:48] VITALS: BP 161/96
--- NOTE | 2020-01-19 17:02 | PDOC DISCHARGE SUMMARY ---
Impression - Admit/DC Date/PCP Admission Date/Primary Care Provider: 01/18/20 23:41 MOHIT SEGOVIA MD Discharge Date: 01/19/20 - Discharge Diagnosis (1) Atrial fibrillation with rapid ventricular response Is this a current diagnosis for this admission?: Yes (2) Essential hypertension Is this a current diagnosis for this admission?: Yes (3) Hyperlipidemia Is this a current diagnosis for this admission?: Yes - Assessment Summary: Patient is admitted to [facility], where he received routine supportive and symptomatic cares. His diltiazem infusion will be continued until can be replaced with adequate oral medication control. Serial cardiac enzymes will be performed. He will use morphine sulfate 2 to 4 mg IV every 2 hours as needed for chest pain not responding to nitroglycerin. He will use Ativan 1 mg IV every 4 hours as needed for anxiety or restlessness. His usual home medications will be continued once his medication list can be verified and has been reconciled. He will be treated with a cardiac diet. Additional laboratory and/or radiographic evaluations will be obtained as needed. - Additional Information Resuscitation Status: Full Code Discharge Diet: Cardiac Discharge Activity: Balance Activity w/Rest, Slowly Increase Activity Referrals: [facility] [NO LOCAL MD] - 05/15/20 10:00 am Prescriptions: Metoprolol Succinate [Toprol Xl 50 mg Tab.sr] 100 mg PO Q12 #60 tab.sr.24h Home Medications: Pravastatin Sodium 20 mg PO QHS 04/24/12 [place]-3 Fatty Acids [Fish Oil] 4,000 mg PO BID 03/03/13 Sildenafil Citrate [Viagra] 100 mg PO ASDIR PRN 03/03/13 Albuterol Sulfate [Albuterol Sulfate Hfa] 2 puff IH Q6HP PRN 05/23/19 Allopurinol [Zyloprim 100 mg Tablet] 100 mg PO DAILY 05/23/19 Lisinopril [Prinivil 40 mg Tablet] 20 mg PO ASDIR PRN 05/23/19 Methocarbamol [Robaxin 500 mg Tablet] 500 mg PO BID PRN 05/23/19 Nifedipine [Nifedipine ER] 30 mg PO DAILY 05/23/19 Pantoprazole Sodium 40 mg PO DAILY 05/23/19 Warfarin Sodium 2.5 mg PO MOWEFR 05/23/19 Warfarin Sodium 5 mg PO SUTUTHSA 05/23/19 Carboxymethylcellulose Sodium [Lubricating Plus] 1 each OP QID 01/19/20 Metoprolol Succinate [Toprol Xl 50 mg Tab.sr] 100 mg PO Q12 #60 tab.sr.24h 01/19/20 Selenium Sulfide [Anti-Dandruff] 1 applic TP DAILY 01/19/20 History of Present Illiness History of Present Illness: ISMAEL HICKS is a 69 year old male who presented the emergency room with acute chest pain. He admits the sudden onset severe, nonradiating, left lateral lower chest sharp stabbing pain. The pain developed at approximately 1700 and was intermittently present for a few minutes then resolved spontaneously. He denies any associated or accompanying signs and symptoms. He admits numerous similar episodes occurring intermittently over the past week and he admits other similar episodes in the remote past. He has not identified any aggravating or ameliorating factors for his chest pain. In the emergency room he was found to have atrial fibrillation with a rapid ventricular response, a BNP of 1100 and normal cardiac enzyme levels. He required a diltiazem infusion in order to adequately control his heart rate and is therefore being admitted to the hospital for further evaluation and treatment. Hospital Course Hospital Course: He actually improved fairly quickly after couple doses of IV Cardizem. He was switched from Lopressor to Toprol-XL with an equivalent dose. His other medications were continued. He said that his chest pain was not actually pain but rather an unpleasant sensation from his palpitations. He showed no signs of ischemia on EKG and his troponins were negative x3. We gave him a prescription for the Toprol-XL that he will use in place of his Lopressor. 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 His labs and examination were reassuring and he was discharged in stable condition. Physical Exam Vital Signs: Temp Pulse Resp BP Pulse Ox 97.8 F 77 16 161/96 H 99 01/19/20 11:34 01/19/20 11:34 01/19/20 11:34 01/19/20 11:34 01/19/20 11:34 Intake & Output 01/18/20 01/19/20 01/20/20 06:59 06:59 06:59 Intake Total 1625 Output Total 75 Balance 1550 Weight 146 kg General appearance: PRESENT: no acute distress, cooperative, disheveled, morbidly obese Respiratory exam: PRESENT: clear to auscultation josie, symmetrical, unlabored. ABSENT: accessory muscle use, chest wall tenderness, crackles, prolonged expiratory phas, rhonchi, tachypnea, wheezes Cardiovascular exam: PRESENT: irregular rhythm, +S1, +S2 Pulses: PRESENT: normal carotid pulses Vascular exam: PRESENT: normal capillary refill GI/Abdominal exam: PRESENT: normal bowel sounds, soft, other - Pendulous abdominal pannus. ABSENT: distended, guarding, rebound, tenderness Extremities exam: ABSENT: clubbing, pedal edema Musculoskeletal exam: PRESENT: ambulatory, normal inspection. ABSENT: deformity Neurological exam: PRESENT: alert, awake, oriented to person, oriented to place, oriented to situation, CN II-XII grossly intact. ABSENT: motor sensory deficit Psychiatric exam: PRESENT: appropriate affect, normal mood Skin exam: PRESENT: dry, warm Results Laboratory Results: WBC 8.5 10^3/uL (4.0-10.5) 01/19/20 04:57 RBC 5.05 10^6/uL (4.35-5.55) 01/19/20 04:57 Hgb 15.9 g/dL (13.5-17.0) 01/19/20 04:57 Hct 45.4 % (37.9-51.0) 01/19/20 04:57 MCV 90 fl (80-97) 01/19/20 04:57 MCH 31.4 pg (27.0-33.4) 01/19/20 04:57 MCHC 34.9 g/dL (32.0-36.0) 01/19/20 04:57 RDW 13.7 % (11.5-14.0) 01/19/20 04:57 Plt Count 264 10^3/uL (150-450) 01/19/20 04:57 Lymph % (Auto) 20.3 % (13-45) 01/18/20 20:17 [place] % (Auto) 6.0 % (3-13) 01/18/20 20:17 Eos % (Auto) 1.9 % (0-6) 01/18/20 20:17 Baso % (Auto) 0.5 % (0-2) 01/18/20 20:17 Absolute Neuts (auto) 6.3 10^3/uL (1.7-8.2) 01/18/20 20:17 Absolute Lymphs (auto) 1.8 10^3/uL (0.5-4.7) 01/18/20 20:17 Absolute Monos (auto) 0.5 10^3/uL (0.1-1.4) 01/18/20 20:17 Absolute Eos (auto) 0.2 10^3/uL (0.0-0.6) 01/18/20 20:17 Absolute Basos (auto) 0.0 10^3/uL (0.0-0.2) 01/18/20 20:17 Seg Neutrophils % 71.3 % (42-78) 01/18/20 20:17 PT 24.5 SEC (11.4-15.4) H 01/19/20 04:57 INR 2.17 01/19/20 04:57 Sodium 139.4 mmol/L (137-145) 01/19/20 04:57 Potassium 4.0 mmol/L (3.6-5.0) 01/19/20 04:57 Chloride 105 mmol/L (98-107) 01/19/20 04:57 Carbon Dioxide 26 mmol/L (22-30) 01/19/20 04:57 Anion Gap 8 (5-19) 01/19/20 04:57 BUN 14 mg/dL (7-20) 01/19/20 04:57 Creatinine 1.02 mg/dL (0.52-1.25) 01/19/20 04:57 Est GFR ( Amer) > 60 (>60) 01/19/20 04:57 Est GFR (MDRD) Non-Af > 60 (>60) 01/19/20 04:57 Glucose 100 mg/dL (75-110) 01/19/20 04:57 Calcium 8.8 mg/dL (8.4-10.2) 01/19/20 04:57 Magnesium 2.2 mg/dL (1.6-2.3) 01/19/20 04:57 Total Bilirubin 1.0 mg/dL (0.2-1.3) 01/18/20 20:17 Direct Bilirubin 0.1 mg/dL (0.0-0.4) 01/18/20 20:17 Neonat Total Bilirubin Not Reportable 01/18/20 20:17 Neonat Direct Bilirubin Not Reportable 01/18/20 20:17 Neonat Indirect Bili Not Reportable 01/18/20 20:17 AST 29 U/L (17-59) 01/18/20 20:17 ALT 21 U/L (<50) 01/18/20 20:17 Alkaline Phosphatase 83 U/L (38-126) 01/18/20 20:17 Creatine Kinase 164 U/L (55-170) 01/19/20 04:57 CK-MB (CK-2) 1.79 ng/mL (<4.55) 01/19/20 04:57 Troponin I < 0.012 ng/mL 01/19/20 04:57 NT-Pro-B Natriuret Pep 1100 pg/mL (<125) H 01/18/20 20:17 Total Protein 7.8 g/dL (6.3-8.2) 01/18/20 20:17 Albumin 4.6 g/dL (3.5-5.0) 01/18/20 20:17 Triglycerides 222 mg/dL (<150) H 01/19/20 04:57 Cholesterol 173.04 mg/dL (0-200) 01/19/20 04:57 LDL Cholesterol Direct 101 mg/dL (<100) H 01/19/20 04:57 VLDL Cholesterol 44.4 mg/dL (10-31) H 01/19/20 04:57 HDL Cholesterol 38 mg/dL (>40) L 01/19/20 04:57 TSH 2.39 uIU/mL (0.47-4.68) 01/18/20 20:17 Urine Color YELLOW 01/18/20 20:17 Urine Appearance SLIGHTLY-CLOUDY 01/18/20 20:17 Urine pH 5.0 (5.0-9.0) 01/18/20 20:17 Ur Specific [place] 1.018 01/18/20 20:17 Urine Protein 30 mg/dL (NEGATIVE) H 01/18/20 20:17 Urine Glucose (UA) NEGATIVE mg/dL (NEGATIVE) 01/18/20 20:17 Urine Ketones NEGATIVE mg/dL (NEGATIVE) 01/18/20 20:17 Urine Blood MODERATE (NEGATIVE) H 01/18/20 20:17 Urine Nitrite NEGATIVE (NEGATIVE) 01/18/20 20:17 Urine Bilirubin NEGATIVE (NEGATIVE) 01/18/20 20:17 Urine Urobilinogen NEGATIVE mg/dL (<2.0) 01/18/20 20:17 Ur Leukocyte Esterase NEGATIVE (NEGATIVE) 01/18/20 20:17 Urine WBC (Auto) 3 /HPF 01/18/20 20:17 Urine RBC (Auto) 6 /HPF 01/18/20 20:17 U Hyaline Cast (Auto) 4 /LPF 01/18/20 20:17 Squamous Epi Cells Auto 1 /HPF 01/18/20 20:17 Urine Mucus (Auto) OCC /LPF 01/18/20 20:17 Urine Ascorbic Acid NEGATIVE (NEGATIVE) 01/18/20 20:17 01/18/20 01/18/20 01/19/20 20:17 23:25 04:57 CK-MB (CK-2) 1.79 Troponin I < 0.012 < 0.012 < 0.012 NT-Pro-B Natriuret Pep 1100 H Impressions: Chest X-Ray 01/18/20 19:35 IMPRESSION: No evidence of acute cardiopulmonary disease. Plan Time Spent: Greater than 30 Minutes Stroke Is this a Stroke Patient?: No Acute Heart Failure - Is this a Heart Failure Patient?: No
== END 2020-01-19 12:40 | disposition home or self-care (01) ==
LOC: ER 19:04 → EH 23:41 → OBSVTOIN 23:41 → INTOOBSV 23:41 → 3S 01-19 04:02
PROVIDERS: ADMIT Emergency Medicine; ATTEND Family Medicine
DX: I48.20 Chronic atrial fibrillation, unspecified (principal); I10 Essential (primary) hypertension; E78.5 Hyperlipidemia, unspecified; E66.01 Morbid (severe) obesity due to excess calories; R60.0 Localized edema; J44.9 Chronic obstructive pulmonary disease, unspecified; M13.879 Other specified arthritis, unspecified ankle and foot; M13.862 Other specified arthritis, left knee; Z79.899 Other long term (current) drug therapy; Z79.01 Long term (current) use of anticoagulants; Z87.891 Personal history of nicotine dependence; Z86.19 Personal history of other infectious and parasitic diseases; Z82.49 Family history of ischemic heart disease and other diseases of the circulatory system; Z98.890 Other specified postprocedural states
CPT/HCPCS: 93005; 96376; 99285; 96361; 96365; 96366; 36415 ×2; 82553; 82550 ×2; 83735 ×2; 84443; 85025; 85027; 85610 ×2; 80048; 80053; 81001; 84484 ×2; 80061; 83880; 71046; 93010; J3490 ×3; J1885; J7030